=== PATIENT | male | born 2000 | race Hispanic/Latino ===

== ENCOUNTER 2021-10-25 23:36 | Emergency (ER) | payer OTHER ==
[~2021-10-25] VITALS: Ht 175.3 cm; Wt 102.8 kg
[2021-10-26 02:52] VITALS: BP 134/76
[2021-10-26] MEDS ORDERED: IBUPROFEN 800 MG TAB PO ONE (02:55)
== END 2021-10-26 03:05 | disposition home or self-care (01) ==
LOC: M ED 23:36
DX: S06.0X0A Concussion without loss of consciousness, initial encounter (principal); F10.10 Alcohol abuse, uncomplicated; W01.0XXA Fall on same level from slipping, tripping and stumbling without subsequent striking against object, initial encounter; W22.8XXA Striking against or struck by other objects, initial encounter; Y92.009 Unspecified place in unspecified non-institutional (private) residence as the place of occurrence of the external cause; Y93.9 Activity, unspecified; Y99.9 Unspecified external cause status

== ENCOUNTER 2024-06-06 15:25 | Emergency (ER) | payer OTHER ==
[~2024-06-06] VITALS: Ht 172.7 cm; Wt 101.5 kg
[2024-06-06 15:28] VITALS: BP 142/62; TEMP 97; O2SAT 98
== END 2024-06-06 21:10 | disposition left against medical advice (07) ==
LOC: M ED 15:25
DX: Z53.21 Procedure and treatment not carried out due to patient leaving prior to being seen by health care provider (principal)

== ENCOUNTER → 2024-09-19 | Outpatient (CLI) | payer OTHER | LOC: M RAD 15:38 | PROVIDERS: ATTEND Physician Assistant | DX: M79.641 Pain in right hand (principal); M25.531 Pain in right wrist ==

== ENCOUNTER → 2024-09-22 | Outpatient (CLI) | payer OTHER | LOC: M RAD 15:17 | PROVIDERS: ATTEND Physician Assistant | DX: M79.642 Pain in left hand (principal); M25.532 Pain in left wrist; R93.6 Abnormal findings on diagnostic imaging of limbs ==

== ENCOUNTER → 2025-05-22 | Outpatient (CLI) | payer OTHER ==
[~2025-05-22] MED LIST: GASTROGRAFIN SOLUTION 30 ML As Ordered ONE; ISOVUE-370 76% 100 ML VIAL As Ordered ONE
== END ==
LOC: M RAD 08:47
PROVIDERS: ATTEND Nurse Practitioner Family
DX: R86.1 Abnormal level of hormones in specimens from male genital organs (principal); K42.9 Umbilical hernia without obstruction or gangrene
CPT/HCPCS: 74177; Q9963; Q9967